=== PATIENT | female | born 1985 ===

== ENCOUNTER 2017-10-15 06:06 | Inpatient (IN) | payer BC ==
[2017-10-15 06:46] LABS: HEMATOCRIT 31.2 % (36.0-47.0); HEMOGLOBIN 10.3 g/dl (12.0-15.5); MEAN CORPUSCULAR HEMOGLOBIN 27.3 pg (27.0-33.0); MEAN CORPUSCULAR VOLUME 82.8 fl (80.0-96.0); PLATELET COUNT, AUTOMATED 216 10^3/uL (150-450); RED BLOOD COUNT 3.77 10^6/uL (4.00-5.40); RED CELL DISTRIBUTION WIDTH 12.7 % (11.5-14.5); WHITE BLOOD COUNT 10.8 10^3/uL (4.0-10.0)
[2017-10-15 06:58] LABS: FIBRINOGEN 455 MG/DL (221-452); INR 0.94; PARTIAL THROMBOPLASTIN TIME 25.6 SECONDS (25.4-37.6); PROTHROMBIN TIME 12.7 SECONDS (12.1-14.4)
[2017-10-15] MEDS: LACTATED RINGER'S 1000 ML IV (07:38)
[2017-10-15] MEDS ORDERED: LR 1,000 ML IV (07:38)
[2017-10-15] MEDS: PENICILLIN G POTASSIUM IV 5 MU in D5W MINI-BAG PLUS 100 ML IV (08:12)
[2017-10-15] MEDS: BETAMETHASONE SOLUSPAN 6MG/ML INJ 5ML (J0702) IM (08:12)
[2017-10-15 08:29] LABS: ALBUMIN 2.5 GM/DL (3.2-5.2); ALBUMIN/GLOBULIN RATIO 0.81 (1.00-1.93); ALKALINE PHOSPHATASE 119 U/L (45-117); ALT/SGPT 15 U/L (12-78); ANION GAP 12 MEQ/L (8-16); AST/SGOT 18 U/L (7-37); BILIRUBIN,TOTAL 0.2 MG/DL (0.2-1.0); BLOOD UREA NITROGEN 10 MG/DL (7-18); CALCIUM LEVEL 8.4 MG/DL (8.5-10.1); CARBON DIOXIDE LEVEL 20 MEQ/L (21-32); CHLORIDE LEVEL 112 MEQ/L (98-107); CREATININE FOR GFR 0.66 MG/DL (0.55-1.30); GLOMERULAR FILTRATION RATE > 60.0 (>60); GLUCOSE, FASTING 79 MG/DL (70-100); POTASSIUM SERUM 3.8 MEQ/L (3.5-5.1); SODIUM LEVEL 144 MEQ/L (136-145); TOTAL PROTEIN 5.6 GM/DL (6.4-8.2)
[2017-10-15] MEDS ORDERED: OXYTOCIN DRIP 30 UNITS in APPROPRIATE DILUENT 1 EA IV (08:30)
[2017-10-15 08:42] LABS: AMPHETAMINES URINE REFLEX NEGATIVE (NEGATIVE); BARBITURATES URINE REFLEX NEGATIVE (NEGATIVE); BENZODIAZEPINES URINE REFLEX NEGATIVE (NEGATIVE); CANNABINOIDS URINE REFLEX NEGATIVE (NEGATIVE); COCAINE METABOLITE URINE REFLE NEGATIVE (NEGATIVE); METHADONE URINE REFLEX NEGATIVE (NEGATIVE); OPIATES URINE REFLEX NEGATIVE (NEGATIVE); PHENCYCLIDINE URINE REFLEX NEGATIVE (NEGATIVE)
[2017-10-15 09:56] LABS: HBSAG L&D NEGATIVE (NEGATIVE)
[2017-10-15] MEDS ORDERED: ceFAZolin 2 GM/D5W 50 ML IV BAG (J0690 PER 500MG) As Ordered (10:45)
[2017-10-15] MEDS ORDERED: BICITRA 30ML SOLN UDC As Ordered (10:54)
[2017-10-15] MEDS ORDERED: MORPHINE PRES-FREE INJ 10 MG/10 ML VIAL (J2274) As Ordered (10:59)
[2017-10-15] MEDS ORDERED: BICITRA 30ML SOLN UDC PO (11:00)
[2017-10-15] MEDS ORDERED: OXYTOCIN INJ 10 UNITS/ML VIAL (J2590) As Ordered ×3 (11:00)
[2017-10-15] MEDS: BICITRA 30ML SOLN UDC PO (11:05)
[2017-10-15] MEDS: AZITHROMYCIN INJ 500 MG, VIAL MATE ADAPTER 1 EACH in D5W 250 ML IV (11:12)
[2017-10-15] MEDS ORDERED: NALOXONE INJ 0.4 MG/1 ML VIAL (J2310) IV ×2 (11:28)
[2017-10-15] MEDS ORDERED: NALBUPHINE HCL 10 MG/ML AMP (J2300) IV (11:28)
[2017-10-15] MEDS ORDERED: ONDANSETRON 4MG/2ML VIAL (J2405) IV ×3 (11:28→13:15)
[2017-10-15] MEDS ORDERED: PHENYLephrine HCL 500 MCG/5 ML (100MCG/ML) SYRINGE (J2370) As Ordered (11:35)
[2017-10-15] MEDS ORDERED: ONDANSETRON 4MG/2ML VIAL (J2405) As Ordered (11:35)
[2017-10-15] MEDS ORDERED: ePHEDrine SULFATE 25 MG/5 ML(5MG/ML) SYRINGE As Ordered (11:35)
[2017-10-15] MEDS ORDERED: PENICILLIN G POTASSIUM IV 2.5 MU in APPROPRIATE DILUENT 1 EA IV (12:00)
[2017-10-15] MEDS ORDERED: KETOROLAC 60 MG/2 ML VIAL (J1885) As Ordered (12:04)
[2017-10-15] MEDS: OXYTOCIN DRIP 30 UNITS in APPROPRIATE DILUENT 1 EA IV (13:00)
[2017-10-15] MEDS: LR 1,000 ML IV ×2 (13:00→21:00)
[2017-10-15] MEDS ORDERED: PROMETHAZINE 25 MG TAB PO (13:00)
[2017-10-15] MEDS ORDERED: PERCOCET 5MG/325MG TAB PO (13:15)
[2017-10-15] MEDS ORDERED: fentaNYL 100 MCG/2 ML INJECTION (J3010) IV (13:15)
[2017-10-15] MEDS ORDERED: METOCLOPRAMIDE INJ 10MG/2ML VIAL (J2765) IV (13:15)
[2017-10-15] MEDS: KETOROLAC 30 MG/ML VIAL (J1885) IV (18:35)
[2017-10-15] MEDS: DOCUSATE SODIUM 100 MG CAP PO (19:55)
[2017-10-15] MEDS: PERCOCET 5MG/325MG TAB PO (20:00)
[2017-10-15] MEDS: METOCLOPRAMIDE INJ 10MG/2ML VIAL (J2765) IV (22:22)
[2017-10-16] MEDS: KETOROLAC 30 MG/ML VIAL (J1885) IV ×2 (01:28→06:45)
[2017-10-16] MEDS: LR 1,000 ML IV ×3 (05:00→20:08)
[2017-10-16 07:07] LABS: HEMATOCRIT 27.9 % (36.0-47.0); HEMOGLOBIN 9.3 g/dl (12.0-15.5); MEAN CORPUSCULAR HEMOGLOBIN 27.4 pg (27.0-33.0); MEAN CORPUSCULAR HGB CONC 33.3 g/dl (32.0-36.5); MEAN CORPUSCULAR VOLUME 82.1 fl (80.0-96.0); PLATELET COUNT, AUTOMATED 245 10^3/uL (150-450); RED CELL DISTRIBUTION WIDTH 12.7 % (11.5-14.5); WHITE BLOOD COUNT 22.2 10^3/uL (4.0-10.0)
[2017-10-16] MEDS: PRENATAL VITAMINS CHEWABLE TABLET PO (08:31)
[2017-10-16] MEDS: DOCUSATE SODIUM 100 MG CAP PO ×2 (08:31→20:08)
[2017-10-16] MEDS: IBUPROFEN 800 MG TAB PO ×2 (14:30→22:58)
[2017-10-16] MEDS: PERCOCET 5MG/325MG TAB PO (20:08)
[2017-10-17] MEDS: LR 1,000 ML IV ×2 (05:00→13:00)
[2017-10-17] MEDS: IBUPROFEN 800 MG TAB PO ×2 (06:59→14:44)
[2017-10-17 08:09] LABS: FETAL SCREEN PROF. 1 1
[2017-10-17] MEDS: DOCUSATE SODIUM 100 MG CAP PO (08:29)
[2017-10-17] MEDS: PRENATAL VITAMINS CHEWABLE TABLET PO (08:29)
[2017-10-17] MEDS: RHOGAM 300 MCG (1500 IU) INJ (J2790) IM (08:31)
[2017-10-18] MEDS: DOCUSATE SODIUM 100 MG CAP PO ×2 (02:26→09:38)
[2017-10-18] MEDS: PERCOCET 5MG/325MG TAB PO (02:27)
[2017-10-18] MEDS: IBUPROFEN 800 MG TAB PO ×2 (02:28→09:38)
[2017-10-18] MEDS: PRENATAL VITAMINS CHEWABLE TABLET PO (09:38)
[2017-10-18] MEDS: MEASLES,MUMPS,RUBELLA VACCINE INJ (MMR-II) (90707) SC (10:54)
== END 2017-10-18 17:00 | disposition home or self-care (01) | DRG 540 ==
LOC: M LDO 06:06 → M LDI 07:31 → M OBS 14:35
PROC: 10D00Z1 Extraction of Products of Conception, Low, Open Approach (ICD-10-PCS; principal; 2017-10-15 11:16)
DX: O45.8X3 Other premature separation of placenta, third trimester (principal); Z37.0 Single live birth; Z3A.35 35 weeks gestation of pregnancy